=== PATIENT | male | born 1930 | race African-American/Black ===

== ENCOUNTER 2022-06-21 17:39 | Emergency (ER) | payer OTHER ==
[~2022-06-21] VITALS: Ht 165.1 cm; Wt 52.2 kg
[2022-06-21 17:51] VITALS: BP_SYST 125
--- NOTE | 2022-06-21 18:53 | NUR ---
Placed in room 1 . Placed on potline monitor, blood pressure machine and pulse oximeter. To gown for exam. Side rails up.
--- NOTE | 2022-06-21 19:02 | NUR ---
Patient transported to radiology via GURNEY, accompanied by STAFF.
[2022-06-21 19:05] LABS: BASOPHILS # (AUTO) 0.1 K/uL (0.0-0.2); BASOPHILS % (AUTO) 0.7 % (0.0-2.0); EOSINOPHILS # (AUTO) 0.1 K/uL (0.0-0.4); EOSINOPHILS % (AUTO) 0.6 % (0.0-4.0); HEMATOCRIT 45.4 % (36-54); HEMOGLOBIN 15.6 g/dL (14.0-18.0); LYMPHOCYTES # (AUTO) 0.3 K/uL (1.0-5.5); LYMPHOCYTES % (AUTO) 3.3 % (20.5-51.5); MEAN CORPUSCULAR HEMOGLOBIN 31 pg (27-31); MEAN CORPUSCULAR HGB CONC 35 % (32-36); MEAN CORPUSCULAR VOLUME 89 fL (79.0-98.0); MONOCYTES # (AUTO) 0.8 K/uL (0.0-1.0); MONOCYTES % (AUTO) 9.3 % (1.7-9.3); NEUTROPHILS # (AUTO) 7.5 K/uL (1.8-7.7); NEUTROPHILS % (AUTO) 86.1 % (40.0-70.0); PLATELET COUNT (AUTO) 120 K/uL (130-430); RED BLOOD CELL COUNT(AUTO) 5.11 MIL/uL (4.2-6.2); RED CELL DISTRIBUTION WIDTH 13.6 % (9.0-15.0); WHITE BLOOD COUNT (AUTO) 8.7 K/uL (4.8-10.8)
[2022-06-21 19:19] LABS: VALPROIC ACID 46 ug/mL (50-100)
[2022-06-21 19:21] LABS: ACETONE, SERUM NEGATIVE (NEGATIVE)
[2022-06-21 19:25] LABS: ANION GAP 6 (5-15); CALCIUM 9.2 mg/dL (8.4-11.0); CHLORIDE 102 mmol/L (98-107); CREATININE 1.22 mg/dL (0.55-1.30); GLUCOSE 134 mg/dL (70-99); POTASSIUM 4.5 mmol/L (3.5-5.1); UREA NITROGEN, BLOOD 18 mg/dL (8-21)
[2022-06-21 19:30] LABS: ALANINE AMINOTRANSFERASE 36 U/L (12-78); ALBUMIN 3.6 g/dL (3.4-4.8); ASPARTATE AMINOTRANSFERASE 39 U/L (10-37); TOTAL BILIRUBIN 0.6 mg/dL (0.0-1.0)
--- NOTE | 2022-06-21 19:37 | NUR ---
Pt BIBA due to unwitnessed syncopal episode at home. Pt was found by family inside the bathtub, unk down time. Daughter states pt was unresponsive and hands were "tremoring" when he was found. No hx of seizures, per daughter. Pt noted with abrasian to L side of forehead/head, but denies any pain/discomfort throughout body. VSS stable at this time. Daughter is at bedside and states father is alert and oriented at this time.
--- NOTE | 2022-06-21 20:10 | NUR ---
MD ORTIZ AT BEDSIDE EXAMINING PT.
[2022-06-21] MEDS ORDERED: DIVALPROEX SODIUM 250 MG TABLET(DEPAKOTE) PO ONE (20:15)
[2022-06-21 20:37] VITALS: BP_SYST 125
--- NOTE | 2022-06-21 20:43 | NUR ---
Patient given written and verbal discharge instructions and verbalizes understanding. ER MD Morrell discussed with patient the results and treatment provided. Patient in stable condition. ID arm band removed. Patient educated on pain management and to follow up with PMD. Opportunity for questions provided and answered.
== END 2022-06-21 20:43 | disposition home or self-care (01) ==
LOC: SED 17:39
DX: R55 Syncope and collapse (principal); I10 Essential (primary) hypertension; E78.5 Hyperlipidemia, unspecified; Z79.899 Other long term (current) drug therapy
CPT/HCPCS: 36415; 70450-TC; 71045; 76376; 80053; 80164; 82009; 82550; 83605; 84484; 85025; 93005; 99285